=== PATIENT | male | born 1975 | race Caucasian/White ===

== ENCOUNTER 2019-01-26 22:04 | Emergency (ER) | payer MEDICAID ==
[~2019-01-26] VITALS: Ht 170.2 cm; Wt 70.5 kg
[~2019-01-26 22:04] MED LIST: CIPR2.5D18 OP; HYDR-4383 PO; NAPR500T6 PO; NO HOME MEDS
[2019-01-26] MEDS ORDERED: PENI500T2 PO (23:01)
[2019-01-26] MEDS ORDERED: IBUP-1984 PO (23:03)
[2019-01-26 23:08] VITALS: BP 140/87
== END 2019-01-26 23:13 | disposition home or self-care (01) ==
LOC: ER 22:05
DX: K04.7 Periapical abscess without sinus (principal); K02.9 Dental caries, unspecified; F12.90 Cannabis use, unspecified, uncomplicated; G89.29 Other chronic pain; Z56.0 Unemployment, unspecified; Z79.899 Other long term (current) drug therapy
CPT/HCPCS: 99283

== ENCOUNTER 2020-03-02 11:18 | Emergency (ER) | payer MEDICAID ==
[~2020-03-02] VITALS: Ht 170.2 cm; Wt 75.0 kg
[~2020-03-02 11:18] MED LIST changes: -CIPR2.5D18 OP; +CIPR2.5D21 OP
[2020-03-02 11:22] VITALS: BP 153/113
[2020-03-02] MEDS ORDERED: PENI500T2 PO (11:52)
[2020-03-02] MEDS ORDERED: CHLO473M3 PO (11:52)
== END 2020-03-02 11:57 | disposition home or self-care (01) ==
LOC: ER 11:19
DX: K08.89 Other specified disorders of teeth and supporting structures (principal); F12.90 Cannabis use, unspecified, uncomplicated; G89.29 Other chronic pain; Z56.0 Unemployment, unspecified; Z79.2 Long term (current) use of antibiotics; Z79.899 Other long term (current) drug therapy
CPT/HCPCS: 99283